=== PATIENT | female | born 1965 | race Caucasian/White ===

== ENCOUNTER 2017-04-06 10:24 | Emergency (ER) | payer MEDICAID ==
[~2017-04-06] VITALS: Ht 154.9 cm; Wt 68.0 kg
[~2017-04-06 10:24] MED LIST: BACTO TP; CEPH-1019 PO; SACC250C1 PO
[2017-04-06 10:29] VITALS: BP 133/89
--- NOTE | 2017-04-06 14:20 | NUR ---
PATIENT LEFT WITHOUT BEING SEEN BY DR. PATEL. NO FURTHER CARE PROVIDED FOR PATIENT.
== END 2017-04-06 14:20 | disposition left against medical advice (07) ==
LOC: MED 10:24
DX: R30.9 Painful micturition, unspecified (principal); Z53.21 Procedure and treatment not carried out due to patient leaving prior to being seen by health care provider
CPT/HCPCS: 81025

== ENCOUNTER 2017-06-06 16:51 | Emergency (ER) | payer MEDICAID ==
[~2017-06-06] VITALS: Ht 157.5 cm; Wt 70.9 kg
[2017-06-06 16:58] VITALS: BP 112/87
--- NOTE | 2017-06-06 18:03 | NUR ---
Pt taken to bed 6.
--- NOTE | 2017-06-06 18:08 | NUR ---
Patient being evaluated by Dr. Figueroa at bedside.
--- NOTE | 2017-06-06 18:13 | NUR ---
51/F c/o erythema to right upper leg and right knee, swelling, pt c/o itchiness. Pt states "I think I bit something bit me [place] was [place] the park." Pt AOX4, martiniquais speaking. No open wounds. No drainage noted, hot to touch. VSS.
--- NOTE | 2017-06-06 18:25 | NUR ---
Patient discharged with v/s stable. Written and verbal after care instructions given and explained. Patient alert, oriented and verbalized understanding of instructions. Ambulatory with steady gait. All questions addressed prior to discharge. ID band removed. Patient advised to follow up with PMD. Rx of NAPROSYN 375MG, HYDROCORTISON 2.5% TOPICAL OINTMENT AND CLARITIN 10MG TAB given. Patient educated on indication of medication including possible reaction and side effects. Opportunity to ask questions provided and answered.
[2017-06-06 18:27] VITALS: BP 105/71
== END 2017-06-06 18:25 | disposition home or self-care (01) ==
LOC: MED 16:51
DX: S70.362A Insect bite (nonvenomous), left thigh, initial encounter (principal); Z79.899 Other long term (current) drug therapy; W57.XXXA Bitten or stung by nonvenomous insect and other nonvenomous arthropods, initial encounter; Y93.89 Activity, other specified; Y92.830 Public park as the place of occurrence of the external cause; Y99.8 Other external cause status
CPT/HCPCS: 99283

== ENCOUNTER 2018-12-24 21:42 | Emergency (ER) | payer MEDICAID ==
[~2018-12-24] VITALS: Ht 160 cm; Wt 68.0 kg
[2018-12-24 22:03] VITALS: BP 149/98
--- NOTE | 2018-12-24 22:41 | NUR ---
PT AMBULATED TO ER BED 08
--- NOTE | 2018-12-24 22:53 | NUR ---
PT BIB FAMILY FOR SUPRABIC PAIN X2 DAYS. PT REPORTS SHARP/PRESSURE PAIN AT 10/10 THAT INCREASES WITH URINATION AND RADIATES TO BLE. PT REPORTS URINARY FREQUENCY, HESITANCY, AND HEMATURIA. PT DENIES FEVER, N/V/D. VSS. ER MD TO SEE PT. WILL CONTINUE TO MONITOR. MEDHX: HYSTERECTOMY RX:NONE
[2018-12-24] MEDS ORDERED: KETOROLAC 60 MG/2 ML VIAL IM ONE (23:20)
[2018-12-24] MEDS ORDERED: PHENAZOPYRIDINE 100 MG TAB PO ONE (23:20)
[2018-12-24] MEDS ORDERED: cefTRIAXone 1,000 MG in LIDOCAINE MPF 1% - 5 mL VIAL 2.1 ML IM ONE (23:30)
[2018-12-25] VITALS: BP 138/72
--- NOTE | 2018-12-25 | NUR ---
Patient discharged with v/s stable. Written and verbal after care instructions given and explained. Patient alert, oriented and verbalized understanding of instructions. Ambulatory with steady gait. All questions addressed prior to discharge. ID band removed. Patient advised to follow up with PMD. Rx of PYRIDIUM, MOTRIN AND BACTRIM given. Patient educated on indication of medication including possible reaction and side effects. Opportunity to ask questions provided and answered.
== END 2018-12-25 | disposition home or self-care (01) ==
LOC: MED 21:42
DX: N39.0 Urinary tract infection, site not specified (principal); Z79.2 Long term (current) use of antibiotics
CPT/HCPCS: 81002; 81025; 96372; 99283; J0696; J1885; J2001

== ENCOUNTER 2019-02-22 22:04 | Emergency (ER) | payer MEDICAID ==
[~2019-02-22] VITALS: Ht 157.5 cm; Wt 68.0 kg
[2019-02-22 22:14] VITALS: BP 135/89
--- NOTE | 2019-02-22 22:15 | NUR ---
PT PRESENTS TO ED WITH C/O NECK PAIN X 2 DAYS. PT DENIES INJURY OR TRAUMA. FULL ROM PRESENT. PT PLACED INTO BED, PENDING MD AMAYA.
--- NOTE | 2019-02-22 22:19 | NUR ---
PT AMBULATED TO ER BED 3
[2019-02-22] MEDS ORDERED: DIAZEPAM 5 MG TAB PO ONE (22:50)
[2019-02-22] MEDS ORDERED: KETOROLAC 60 MG/2 ML VIAL IM ONE (22:50)
[2019-02-22 23:55] VITALS: BP 131/81
--- NOTE | 2019-02-22 23:55 | NUR ---
Patient discharged with v/s stable. Written and verbal after care instructions given and explained. Patient alert, oriented and verbalized understanding of instructions. Ambulatory with steady gait. All questions addressed prior to discharge. ID band removed. Patient advised to follow up with PMD. Rx of VALIUM, LIDODERM PATCH, AND NAPROSYN given. Patient educated on indication of medication including possible reaction and side effects. Opportunity to ask questions provided and answered.
== END 2019-02-22 23:55 | disposition home or self-care (01) ==
LOC: MED 22:04
DX: S16.1XXA Strain of muscle, fascia and tendon at neck level, initial encounter (principal); Z98.890 Other specified postprocedural states; Z79.2 Long term (current) use of antibiotics; Z79.899 Other long term (current) drug therapy; X58.XXXA Exposure to other specified factors, initial encounter; Y93.89 Activity, other specified; Y92.89 Other specified places as the place of occurrence of the external cause; Y99.8 Other external cause status
CPT/HCPCS: 72125; 96372; 99284; J1885

== ENCOUNTER 2019-12-22 15:42 | Emergency (ER) | payer MEDICAID ==
[~2019-12-22] VITALS: Ht 157.5 cm; Wt 65.8 kg
[2019-12-22 16:00] VITALS: BP 125/84
--- NOTE | 2019-12-22 16:12 | NUR ---
PT AMBULATED TO BED
--- NOTE | 2019-12-22 16:29 | NUR ---
PT PRESENTS TO ER WITH DRY HACKING COUGH, AND SEVERE HEADACHE X 5 DAYS. PT C/O COUGHING SPELLS, CHILLS, AND 9/10 PAIN WHEN COUGHING, CREATING HEADACHE, SNEEZING, AND NASAL CONGESTION. DENIES NAUSEA, FEVER, DIARRHEA. WILL CONTINUE TO MONITOR, SIDERAIL X1 NO PMH NKDA
[2019-12-22] MEDS ORDERED: KETOROLAC 60 MG/2 ML VIAL IM ONE (16:30)
--- NOTE | 2019-12-22 16:52 | NUR ---
Patient discharged with v/s stable. Written and verbal after care instructions given and explained. Patient alert, oriented and verbalized understanding of instructions. Ambulatory with steady gait. All questions addressed prior to discharge. ID band removed. Patient advised to follow up with PMD. Rx of MOTRIN, PREDNISONE given. Patient educated on indication of medication including possible reaction and side effects. Opportunity to ask questions provided and answered.
== END 2019-12-22 16:52 | disposition home or self-care (01) ==
LOC: MED 15:42
DX: R05 Cough (principal); R07.89 Other chest pain; Z79.899 Other long term (current) drug therapy
CPT/HCPCS: 96372; 99283; J1885

== ENCOUNTER 2020-09-20 18:27 | Emergency (ER) | payer MEDICAID ==
--- NOTE | 2020-09-20 18:57 | NUR ---
CALLED PT IN THE TENT. PT IS NOT FOUND. WILL CALL PT LATER.
--- NOTE | 2020-09-20 19:05 | NUR ---
CALLED FOR THE SECOND TIME , NO RESPONSE
--- NOTE | 2020-09-20 19:10 | NUR ---
CALLED FOR THE THIRD TIME NO RESPONSE. PATIENT LEFT WITHOUT BEING SEEN BY DR. TSANG. NO FURTHER CARE PROVIDED FOR PATIENT.
== END 2020-09-20 18:57 | disposition left against medical advice (07) ==
LOC: MED 18:27
DX: Z53.21 Procedure and treatment not carried out due to patient leaving prior to being seen by health care provider (principal)

== ENCOUNTER 2021-10-25 16:59 | Emergency (ER) | payer MEDICAID, OTHER ==
[~2021-10-25] VITALS: Ht 162.6 cm; Wt 68.0 kg
[2021-10-25 17:39] VITALS: BP 103/60
[2021-10-25] MEDS ORDERED: KETOROLAC 60 MG/2 ML VIAL IM ONE (20:15)
[2021-10-25] MEDS ORDERED: PRED20TA5 PO (20:26)
[2021-10-25] MEDS ORDERED: IBUP-2213 PO (20:26)
--- NOTE | 2021-10-25 21:42 | NUR ---
PATIENT ELOPED FROM FACILITY. DISCHARGE INSTRUCTIONS NOT GIVEN TO PATIENT. DR. CORMIER NOTIFIED.
--- NOTE | 2021-10-25 21:42 | NUR ---
2140 - PER DARY ENGLE ELOPED FROM FACILITY
== END 2021-10-25 21:40 | disposition left against medical advice (07) ==
LOC: MED 16:59
DX: J11.1 Influenza due to unidentified influenza virus with other respiratory manifestations (principal); R05.9 Cough, unspecified; Z79.899 Other long term (current) drug therapy; Z79.2 Long term (current) use of antibiotics
CPT/HCPCS: 71045; 96372; 99283; J1885